=== PATIENT | male | born 2000 ===

== ENCOUNTER 2022-02-26 06:54 | Emergency (ER) | payer SELFPAY ==
[2022-02-26 07:24] VITALS: BP 126/81
[2022-02-26 08:24] LABS: Basophils # (Auto) 0.1 K/mm3 (0.0-0.1); Basophils % (Auto) 0.4 % (0.0-1.8); Eosinophils # (Auto) 0.8 K/mm3 (0.0-0.4); Eosinophils % (Auto) 4.5 % (0.0-4.3); Hematocrit 47.2 % (35.5-45.6); Hemoglobin 15.2 gm/dl (11.8-15.2); Lymphocytes # (Auto) 1.4 K/mm3 (1.2-5.4); Mean Corpuscular HGB Conc 32 % (32-34); Mean Corpuscular Volume 91 fl (84-94); Monocytes # (Auto) 0.8 K/mm3 (0.0-0.8); Monocytes % (Auto) 4.6 % (0.0-7.3); Platelet Count 264 K/mm3 (140-440); Red Blood Count 5.21 M/mm3 (3.65-5.03)
[2022-02-26 08:47] LABS: Alanine Aminotransferase 27 units/L (7-56); BUN/Creatinine Ratio 13; Blood Urea Nitrogen 10 mg/dL (9-20); Hemolysis Index 14
--- NOTE | 2022-02-26 19:57 | Electrocardiograph Report ---
[facility] [place] Test Date: 2022-02-26 Test Time: 07:27:51 Pat Name: JOHN ALLEN Department: Room: Gender: M Skin Lap Bonder: ALY : 2000 Requested By: ED DOC Order Number: [id number] Reading MD: Miguelina Gomez Measurements Intervals [place] Rate: 73 P: 51 SC: 142 QRS: 73 QRSD: 89 T: 26 QT: 343 QTc: 378 Interpretive Statements Sinus rhythm Normal early repolarization ST changes No previous ECG available for comparison Electronically Signed On 02-26-2022 19:57:06 EDT by Miguelina Gomez
== END 2022-02-26 10:25 | disposition left against medical advice (07) ==
LOC: ED 06:54
DX: R55 Syncope and collapse (principal); Z53.21 Procedure and treatment not carried out due to patient leaving prior to being seen by health care provider
CPT/HCPCS: 36415; 80053; 83690; 85025; 93005